=== PATIENT | male | born 1965 | race Caucasian/White ===

== ENCOUNTER → 2017-05-14 | Outpatient (CLI) | payer OTHER ==
[~2017-05-14] MED LIST: ECOT81TA2 PO; METF500 PO
[2017-05-14 13:54] LABS: BLOOD GAS BASE EXCESS 0.6 mmol/L (-2-2); BLOOD GAS CARBOXYHEMOGLOBIN 11.5 % (0-4); BLOOD GAS HCO3 25 mmol/L (22-26); BLOOD GAS METHEMOGLOBIN 1.4 % (0-2); BLOOD GAS O2 HGB SATURATION 82 % (90-100); BLOOD GAS OXYGEN CONTENT 21.1 Vol % (12.0-20.0); BLOOD GAS PCO2 39 mmHg (38-42); BLOOD GAS PO2 69 mmHg (61-120); BLOOD GAS TOTAL HGB 18.3 G/DL (12.0-16.0); TEMP CORR TO 98.6
[2017-05-14 13:55] LABS: CRITICAL VALUE YES; DRAW SITE RT RADIAL; FIO2 21 %; NUMBER OF ARTERIAL PUNCTURES 1; STAT NO; ULNAR PULSE PRESENT
--- NOTE | 2017-05-18 10:08 | RSPPFT ---
DATE OF PROCEDURE: 05/14/17 COMMENTS: VOLUMES DYNAMIC: FVC and FEV1 moderaely reduced. STATIC: TLC, FRC mildly reduced; RV mildly increased. FLOWS: FEV1% low normal; FEF 25-75 severely reduced. DIFFUSION: Moderately reduced. FLOW VOLUME LOOP: Very poor tracing appears to be a combined obstructive and restrictive defect. IMPRESSION: Mr. Ceballos performed much better post-bronchodilator really so much so that it was probably technical to some extent but he does have a restrictive defect with TLC at 63%. There is a mild to moderate reduction in diffusion and some terminal airflow obstruction. Clinical correlation is required.
== END ==
LOC: HRSP 12:46
PROVIDERS: ATTEND Internal Medicine
DX: J44.9 Chronic obstructive pulmonary disease, unspecified (principal); R06.02 Shortness of breath
CPT/HCPCS: 36600; 82805; 94060; 94620; 94726; 94729